=== PATIENT | female | born 1965 ===

== ENCOUNTER 2022-08-09 09:29 | Day surgery (SDC) | payer OTHER, SELFPAY ==
--- NOTE | 2022-08-09 | PATH_ITS ---
[facility] Accession Number: [id number] No. of containers..01 Tissue . 01 Material submitted: . rectum - RECTUM BIOPSY . 01 Diagnosis: Rectum, Biopsy: Mildly active colitis with distortion of the crypt architecture. Please see comment. Negative for granulomas, dysplasia, and malignancy. MRV 08/15/2022 1308 Local . 01 Comment: The rectal biopsies show patchy mild neutrophilic cryptitis associated with a diffuse distortion of the crypt architecture, including branched crypts, shortened crypt length and increased lymphocytes, plasma cells and eosinophils in the lamina propria. No obvious viral cytopathic effects, parasitic organisms, or granulomas are identified. The differential diagnosis includes infection, medicated related mucosal injury, trauma/prolapse, and idiopathic inflammatory bowel disease. . 01 Electronically signed: . Polly Sommers MD, Pathologist NPI- [id number] . 01 Gross description: . RECTUM BIOPSY: Received in formalin are multiple fragment(s) of russell, soft tissue measuring 0.1 x 0.1 x 0.1 cm to 0.3 x 0.3 x 0.2 cm submitted entirely in 1 cassette(s) /DAR 08/10/2022 2325 Local . 01 Pathologist provided ICD-10: Z12.11 . 01 CPT . 152878 Specimen Comment: A courtesy copy of this report has been sent to [phone] Performed at: 01 [facility] [address] [place] [address], [place], [place] [id number] MD Zelalem Melchor MD Phone: [phone]
[2022-08-09 09:59] VITALS: BP 113/82; PULSE 88; RESP 14; TEMP 36.8; O2SAT 98
[2022-08-09 10:04] VITALS: BMI 21.7
[2022-08-09] MEDS: LACTATED RINGERS 1,000 ML 200 ML IV (10:27)
--- NOTE | 2022-08-09 10:32 | PM.HP.1 ---
History of Present Illness History of Present Illness Date Patient Seen: 08/09/22 Time Patient Seen: 10:32 Chief complaint: Colonoscopy Narrative: The patient presents for colorectal screening. They have never had any previous examination for such. No personal or family history of colon cancer. For the past 2 months she is some bright red blood per rectum painless, no abdominal pain or unintentional weight loss. Patient History Family & Social History Social History: household members spouse Tobacco & Substance use: Smoking Status Never smoker alcohol intake never Substance Use Type does not use Meds Home Medications and Allergies Home Medications Medication Instructions Recorded Confirmed Type estradiol 0.01% (0.1 mg/gram) 1 g vaginal 3XW 08/09/22 08/09/22 History vaginal cream Allergies Allergy/AdvReac Type Severity Reaction Status Date / Time No Known Drug Allergies Allergy Verified 08/09/22 09:54 Exam Vital Signs (past 8 hours): - 08/09/22 09:59 Temperature 98.2 F Pulse Rate 88 Respiratory Rate 14 Blood Pressure 113/82 Pulse Oximetry 98 Oxygen Delivery Method Room Air Oxygen Delivery Method Room Air Narrative Exam Narrative: General adult woman alert oriented no acute distress Assessment & Plan Assessment and plan (1) Bright red blood per rectum: Status: Acute Assessment & Plan narrative: The patient requires colorectal screening and colonoscopy is recommended. Technical details were discussed. Risks, benefits, alternatives explained. Risks including but not limited to myocardial infarction, aspiration, bleeding, pain, missed lesion, incomplete examination, need for further radiographic studies, colonic perforation, and need for major abdominal surgery were discussed. All questions were answered to their satisfaction, and they are in agreement with this plan. Time Spent With Patient Critical Care time: I spent a total of [] minutes of critical care time on this patient's care today; this time is exclusive of procedural time.
[2022-08-09 11:02] VITALS: BP 88/61; PULSE 77; RESP 15; TEMP 36.9; O2SAT 97
--- NOTE | 2022-08-09 11:04 | PM.OP.COLON ---
Operative Date/Time/Diagnoses Date of procedure: 08/09/22 Time of procedure: 11:05 Pre-op diagnosis: Colorectal screening, rectal bleeding Post-op diagnosis: other (Proctitis) Procedure & Clinicians Study performed: Colonoscopy Same procedure as scheduled: Yes Indications: Colorectal screening, rectal bleeding Surgeon: Michael Castrejon Procedure Notes Procedure in detail: The history and physical was performed/updated and the patient is ASA class is 2. The procedure was discussed in detail with the patient. Potential risks complications including infection, bleeding, missed diagnosis, perforation, need for surgery, and were explained. Their questions were answered and informed consent was obtained. Patient was brought to the procedure room and placed standard monitoring equipment. The patient's vital signs were monitored continuously throughout the entire procedure. Prior to starting time-out was performed. The patient was placed in the left lateral recumbent position. Procedural sedation was administered by anesthesia. Examination began with a thorough inspection of the perianal area there was no evidence of fissures, fistulae, external hemorrhoids or cutaneous malignancy. The colonoscopy scope was then placed into the anal canal and was advanced to the cecum, which was identified by the ileocecal valve, the appendiceal orifice and the confluence of the taenia. The scope was then slowly withdrawn examining colon thoroughly in all directions, irrigating it of any residual stool. There were no masses or polyps within the colon. The rectum was notable for diffuse proctitis (sloughing tissue) and multiple biopsies and rectum were performed with forceps. The patient tolerated the procedure well. They will be discharged once criteria are met. The prep was of good/excellent quality. The withdrawl time was 8 minutes. Specimen(s): other (Rectal biopsy) Impression: Proctitis Post-procedure Recommendations: High fiber diet Plan for aftercare: Mesalamine suppository once daily x3 weeks Disposition: same day surgery
[2022-08-09 11:06] VITALS: BP 90/64; PULSE 77; RESP 17; TEMP 36.9; O2SAT 97
[2022-08-09 11:18] VITALS: BP 101/72; PULSE 66; RESP 15; TEMP 36.6; O2SAT 100
[2022-08-09 11:30] VITALS: BP 101/69; PULSE 65; RESP 16; TEMP 36.3; O2SAT 98
== END 2022-08-09 11:32 | disposition home or self-care (01) ==
PROVIDERS: Referring Provider Surgery; Visit Provider Surgery
PROC: 0DJD8ZZ Inspection of Lower Intestinal Tract, Via Natural or Artificial Opening Endoscopic (ICD-10-PCS; CPT 45378; principal; 2022-08-09 10:30)
DX: K62.89 Other specified diseases of anus and rectum (principal); K52.9 Noninfective gastroenteritis and colitis, unspecified
CPT/HCPCS: 45380; J2704

== ENCOUNTER 2023-01-31 13:53 | Emergency (ER) | payer OTHER, SELFPAY ==
[2023-01-31 14:23] VITALS: BP 120/69; PULSE 102; RESP 18; TEMP 36.7; O2SAT 99; BMI 21.6
[2023-01-31 14:46] LABS: Add Manual Diff / Slide Review NO; Basophils Absolute Auto 100 /uL (0-100); Basophils Percent Auto 0.9 % (0-2); Eosinophils Absolute Auto 900 /uL (0-450); Eosinophils Percent Auto 10.4 % (2-4); Hematocrit 31.9 % (36-46); Hemoglobin 10.7 g/dL (12.0-16.0); Lymphocytes Absolute Auto 1800 /uL (1100-4500); Lymphocytes Percent Auto 20.1 % (25-40); Mean Corpuscular HGB Conc 33.7 % (30-36); Mean Corpuscular Hemoglobin 29.1 PG (26-34); Mean Corpuscular Volume 86.5 fL (80-100); Monocytes Absolute Auto 700 /uL (0-900); Monocytes Percent Auto 7.6 % (3-14); Neutrophils Absolute Auto 5600 /uL (1500-7000); Platelet Count 438 X10^3/uL (150-400); Red Blood Cell Count 3.69 X10^6/uL (4.0-5.2); Red Cell Distribution Width 14.1 % (11.6-14.8); White Blood Cell Count 9.1 X10^3/uL (4.5-11.0)
[2023-01-31 14:52] LABS: INR 1.1 (0.9-1.3); Prothrombin Time 12.5 SECONDS (10.1-12.7)
[2023-01-31 14:55] LABS: PTT Partial Thromboplastin Tim 30 SECONDS (26-36)
[2023-01-31 14:56] LABS: Alanine Aminotransferase 12 IU/L (<35); Albumin 3.8 g/dL (3.5-5.0); Albumin Globulin Ratio 1.1 (1.0-2.8); Alkaline Phosphatase 91 U/L (38-126); Aspartate Aminotransferase 19 IU/L (14-36); BUN Creatinine Ratio 10.1 (6-22); Bilirubin Total 0.4 mg/dL (0.2-1.3); Blood Urea Nitrogen 7 mg/dL (7-17); Calcium 9.1 mg/dL (8.4-10.2); Carbon Dioxide 25 mmol/L (22-32); Chloride 102 mmol/L (98-107); Estimated Glomerular Filt Rate > 60 mL/min (>60); Globulin 3.5 g/dL (1.7-4.1); Glucose 83 mg/dL (70-100); HEMOLYSIS < 15 (0-50); Potassium 3.9 mmol/L (3.4-5.1); Sodium 137 mmol/L (137-145); Total Protein 7.3 g/dL (6.3-8.2)
[2023-01-31 15:40] VITALS: PULSE 89; O2SAT 97
[2023-01-31 15:41] VITALS: BP 112/70; PULSE 85; O2SAT 99
[2023-01-31] MEDS: PANTOPRAZOLE 40 MG VIAL 80 MG IV (16:03)
[2023-01-31 18:39] LABS: Hematocrit 34.1 % (36-46); Hemoglobin 11.2 g/dL (12.0-16.0)
[2023-01-31 18:49] VITALS: O2SAT 100
[2023-01-31 18:50] VITALS: BP 106/68; PULSE 81; O2SAT 99
--- NOTE | 2023-01-31 19:12 | ED_ITS ---
HPI - Nausea/Vomiting/Diarrhea General Chief complaint: Nausea/Vomiting/Diarrhea Stated complaint: Vomiting blood Time Seen by Provider: 01/31/23 18:02 Source: patient Mode of arrival: Ambulatory Limitations: no limitations History of Present Illness HPI Narrative: Patient is a 57-year-old female who is here for evaluation of vomiting bright red blood. The vents occurred today although she has been having some issues with blood in her stool and other GI issues. She has had a colonoscopy but not an upper endoscopy. Is having some nausea. Does not take anti-inflammatories. Is not on blood thinners. Denies alcohol use. No fevers. Related Data Home Medications Medication Instructions Recorded Confirmed estradiol 0.01% (0.1 mg/gram) 1 g vaginal 3XW 08/09/22 08/09/22 vaginal cream Previous Rx's Medication Instructions Recorded ondansetron 4 mg disintegrating 4 mg PO Q6H PRN nausea and 01/31/23 tablet vomiting #14 tabs Allergies Allergy/AdvReac Type Severity Reaction Status Date / Time No Known Drug Allergies Allergy Verified 01/31/23 14:26 Review of Systems Constitutional Constitutional: Reports system reviewed and no additional complaints, except as documented Cardiovascular Cardiovascular: Reports system reviewed and no additional complaints, except as documented Respiratory Respiratory: Reports system reviewed and no additional complaints, except as documented Gastrointestinal Gastrointestinal: Reports system reviewed and no additional complaints, except as documented Integumentary/Breasts Skin/Breast: Reports system reviewed and no additional complaints, except as documented Neurologic Neurologic: Reports system reviewed and no additional complaints, except as documented Hematologic/Lymphatic On Anticoagulants: No Patient History Social History household members: spouse Smoking Status: Never smoker alcohol intake: never Smoking Status: Never smoker Substance Use Type: does not use Exam Initial Vital Signs Initial Vital Signs: Vital Signs Temperature 98.1 F 01/31/23 14:23 Pulse Rate 102 H 01/31/23 14:23 Respiratory Rate 18 01/31/23 14:23 Blood Pressure 120/69 01/31/23 14:23 Pulse Oximetry 99 01/31/23 14:23 Oxygen Delivery Method Room Air 01/31/23 14:23 Const General: cooperative, comfortable and No ill appearing HENMT Head: normal to inspection and normocephalic Resp Effort & Inspection: normal respiratory effort Auscultation: clear to auscultation bilaterally Cardio Rate: regular rate Rhythm: regular rhythm GI Inspection: normal to inspection and non-distended Palpation: soft and No tender Skin General: no rashes or lesions noted Course Orders Ordered: ED Orders 01/31/23 16:50 Hemoglobin and Hematocrit Stat Discontinued Medications Ondansetron HCl (Ondansetron 4 Mg/2 Ml Inj) 4 mg IV NOW PRN PRN Reason: Nausea And Vomiting Ondansetron HCl (Ondansetron 4 Mg Odt) 4 mg SL NOW PRN PRN Reason: Nausea And Vomiting Pantoprazole Sodium (Pantoprazole 40 Mg Vial) 80 mg IV NOW ONE Stop: 01/31/23 14:28 Last Admin: 01/31/23 16:03 Dose: 80 mg Documented By: GREG Vital Signs Vital signs: Vital Signs - 8 hr 01/31/23 18:49 01/31/23 18:50 01/31/23 18:50 Pulse Rate 81 Blood Pressure 106/68 Pulse Oximetry 100 99 Oxygen Delivery Method Room Air Room Air MDM - Nausea/Vomiting/Diarrhea Lab Data Attestation: I reviewed the patient's lab results. 01/31/23 16:50 01/31/23 14:32 Labs: Lab Results 01/31/23 01/31/23 01/31/23 Range/Units 14:32 14:32 14:32 WBC 9.1 (4.5-11.0) X10^3/uL RBC 3.69 L (4.0-5.2) X10^6/uL Hgb 10.7 L (12.0-16.0) g/dL Hct 31.9 L (36-46) % MCV 86.5 (80-100) fL MCH 29.1 (26-34) PG MCHC 33.7 (30-36) % RDW 14.1 (11.6-14.8) % Plt Count 438 H (150-400) X10^3/uL Neut % (Auto) 61.0 (50-75) % Lymph % (Auto) 20.1 L (25-40) % [place] % (Auto) 7.6 (3-14) % Eos % (Auto) 10.4 H (2-4) % Baso % (Auto) 0.9 (0-2) % Neut # (Auto) 5600 (4791-1225) /uL Lymph # (Auto) 1800 (1849-3830) /uL [place] # (Auto) 700 (0-900) /uL Eos # (Auto) 900 H (0-450) /uL Baso # (Auto) 100 (0-100) /uL PT 12.5 (10.1-12.7) SECONDS INR 1.1 (0.9-1.3) APTT 30 (26-36) SECONDS Sodium 137 (137-145) mmol/L Potassium 3.9 (3.4-5.1) mmol/L Chloride 102 (98-107) mmol/L Carbon Dioxide 25 (22-32) mmol/L BUN 7 (7-17) mg/dL Creatinine 0.69 (0.52-1.04) mg/dL Estimated GFR > 60 (>60) mL/min BUN/Creatinine Ratio 10.1 (6-22) Glucose 83 (70-100) mg/dL Calcium 9.1 (8.4-10.2) mg/dL Total Bilirubin 0.4 (0.2-1.3) mg/dL AST 19 (14-36) IU/L ALT 12 (<35) IU/L Alkaline Phosphatase 91 (38-126) U/L Total Protein 7.3 (6.3-8.2) g/dL Albumin 3.8 (3.5-5.0) g/dL Globulin 3.5 (1.7-4.1) g/dL Albumin/Globulin Ratio 1.1 (1.0-2.8) Blood Type Antibody Screen 01/31/23 01/31/23 Range/Units 15:50 16:50 WBC (4.5-11.0) X10^3/uL RBC (4.0-5.2) X10^6/uL Hgb 11.2 L (12.0-16.0) g/dL Hct 34.1 L (36-46) % MCV (80-100) fL MCH (26-34) PG MCHC (30-36) % RDW (11.6-14.8) % Plt Count (150-400) X10^3/uL Neut % (Auto) (50-75) % Lymph % (Auto) (25-40) % [place] % (Auto) (3-14) % Eos % (Auto) (2-4) % Baso % (Auto) (0-2) % Neut # (Auto) (5505-3149) /uL Lymph # (Auto) (6608-3756) /uL [place] # (Auto) (0-900) /uL Eos # (Auto) (0-450) /uL Baso # (Auto) (0-100) /uL PT (10.1-12.7) SECONDS INR (0.9-1.3) APTT (26-36) SECONDS Sodium (137-145) mmol/L Potassium (3.4-5.1) mmol/L Chloride (98-107) mmol/L Carbon Dioxide (22-32) mmol/L BUN (7-17) mg/dL Creatinine (0.52-1.04) mg/dL Estimated GFR (>60) mL/min BUN/Creatinine Ratio (6-22) Glucose (70-100) mg/dL Calcium (8.4-10.2) mg/dL Total Bilirubin (0.2-1.3) mg/dL AST (14-36) IU/L ALT (<35) IU/L Alkaline Phosphatase (38-126) U/L Total Protein (6.3-8.2) g/dL Albumin (3.5-5.0) g/dL Globulin (1.7-4.1) g/dL Albumin/Globulin Ratio (1.0-2.8) Blood Type O Positive Antibody Screen Negative Urine Dip Bedside Urine Glucose Negative Bedside Urine Bilirubin - Negative Bedside Urine Ketone ++ 40 Urine Specific [place] 1.015 Bedside Urine Occult Blood - Negative Bedside Urine pH 6.0 Bedside Urine Protein - Negative Bedside Urine Urobilinogen - Negative Bedside Urine Nitrite - Negative Bedside Urine Leukocytes - Negative Esterase ECG Data Attestation: I personally reviewed and interpreted this ECG as follows: Interpretation: Sinus rhythm Ventricular rate 80 Normal axis Normal QRS Normal QTC No ST T wave changes MDM Narrative Medical decision making narrative: Patient has had 1 episode vomiting bright red blood today. She is a benign exam. Normal vital signs. H&H is not changed after a couple hours of observation here in the emergency department. I did discuss the possibility of Екатерина-Nava tears are also stomach ulcers. Patient does not require admission to the hospital for emergent endoscopy. We will place her on a proton pump inhibitor. He was advised she needs to talk with her primary doctor about a referral to see Gastroenterology she most likely is going to need an upper endoscopy. She was given return precautions and follow-up instructions. She expressed understanding and agreement. Discharge Plan Departure Patient Disposition: Home Clinical Impression: Hematemesis Instructions: Gastrointestinal Bleeding Activity Restrictions/Additional Instructions: I do recommend that you talk with your primary doctor about a referral to see Gastroenterology for further workup of your symptoms. I also recommend that you start on a proton pump inhibitor. Examples of this include Nexium, omeprazole, Prilosec, as omeprazole. You can purchase these [id number]. Use the nausea medication as needed. Return to the emergency department for new symptoms. Prescriptions: New ondansetron 4 mg tablet,disintegrating 4 mg PO Q6H PRN (Reason: nausea and vomiting) Qty: 14 0RF No Action estradiol 0.01 % (0.1 mg/gram) Cream 1 g VAGINAL 3XW Stand Alone Forms: Patient Portal/API
== END 2023-01-31 19:25 | disposition home or self-care (01) ==
PROVIDERS: Emergency Medicine; Emergency Provider Emergency Medicine
DX: K92.0 Hematemesis (principal)
CPT/HCPCS: 36415; 80053; 81003; 85014; 85018; 85025; 85610; 85730; 86850; 86900; 86901; 93005; 96374; 99284; C9113